=== PATIENT | male | born 1955 | race Caucasian/White ===

== ENCOUNTER 2017-08-22 10:56 | Inpatient (IN) | payer MEDICARE, OTHER ==
[~2017-08-22] VITALS: Ht 195.6 cm; Wt 125.7 kg
[2017-08-22] MEDS ORDERED: SODIUM CHLORIDE 0.9% 1,000 ML IV ONE (11:14)
[2017-08-22] MEDS ORDERED: LORazepam 2 MG/ML, 1ML IVPush ONE (11:30)
[2017-08-22 11:36] LABS: BASOPHILS # (AUTO) 0.04 x10^3/uL (0-0.1); BASOPHILS % (AUTO) 1 % (0-1); EOSINOPHILS # (AUTO) 0.09 x10^3/uL (0-0.4); EOSINOPHILS % (AUTO) 2 % (1-7); LYMPHOCYTES # (AUTO) 1.28 x10^3/uL (1-3.4); LYMPHOCYTES % (AUTO) 21 % (22-44); MD NO; MEAN CORPUSCULAR HGB CONC 34.1 g/dL (33.2-36.2); MEAN CORPUSCULAR VOLUME 99.5 fL (81-97); MEAN PLATELET VOLUME 7.9 fL (7.4-10.4); MONOCYTES # (AUTO) 0.57 x10^3/uL (0.2-0.8); MONOCYTES % (AUTO) 9 % (2-9); NEUTROPHILS # (AUTO) 4.12 x10^3/uL (1.8-6.8); NEUTROPHILS % (AUTO) 67 % (42-75); PLATELET COUNT 334 x10^3/uL (130-400); RED CELL DISTRIBUTION WIDTH 14.7 % (9.4-14.8)
[2017-08-22 11:46] LABS: ANION GAP 8 mmol/L (5-15); CHLORIDE 104 mmol/L (98-107)
[2017-08-22] MEDS ORDERED: LORazepam 2 MG/ML, 1ML ONE (11:52)
[2017-08-22 11:58] LABS: ALANINE AMINOTRANSFERASE 29 U/L (12-78); ALKALINE PHOSPHATASE 116 U/L (45-117); SALICYLATE LEVEL 2.2 mg/dL (2.8-20.0); TOTAL PROTEIN 7.9 g/dL (6.4-8.2)
[2017-08-22 11:59] LABS: AMPHETAMINE SCREEN, URINE Negative (Negative); BARBITURATE SCREEN, URINE Negative (Negative); BENZODIAZEPINE SCREEN, URINE Positive (Negative); CANNABINOID SCREEN, URINE Negative (Negative); COCAINE SCREEN, URINE Negative (Negative); METHADONE SCREEN, URINE Negative (Negative); OPIATE SCREEN, URINE Negative (Negative)
[2017-08-22 12:17] LABS: ACETAMINOPHEN < 2 mcg/mL (10-30)
[2017-08-22] MEDS ORDERED: POLYETHYLENE GLYCOL 17 GM PACKET PO PRN (15:00)
[2017-08-22] MEDS ORDERED: ONDANSETRON ODT 4 MG PO PRN (15:00)
[2017-08-22] MEDS ORDERED: ONDANSETRON 2MG/ML, 2ML IVPush PRN (15:00)
[2017-08-22] MEDS ORDERED: LORazepam 0.5MG TABLET PO PRN (15:00)
[2017-08-22] MEDS ORDERED: LABETALOL 5MG/ML, 20ML IVPush PRN (15:00)
[2017-08-22] MEDS ORDERED: LORazepam 2 MG/ML, 1ML IV PRN ×5 (15:00)
[2017-08-22] MEDS ORDERED: morphine SULFATE 10 MG/ML, 1ML IVPush PRN (15:00)
[2017-08-22] MEDS ORDERED: GUAIFENESIN/DM 200-20MG, 10ML UDC PO PRN (15:00)
[2017-08-22] MEDS ORDERED: LORazepam 1MG TABLET PO PRN ×4 (15:00)
[2017-08-22 15:18] LABS: FREE T4 (FREE THYROXINE) 0.93 ng/dL (0.76-1.46); THYROID STIMULATING HORMONE 1.59 mIU/L (0.358-3.740)
[2017-08-22 15:20] LABS: D-DIMER 1.28 ug/mlFEU (0.00-0.52); INTERNATIONAL NORMALIZED RATIO 1.04 (0.93-1.1); PROTHROMBIN TIME 10.8 Seconds (9.6-11.5)
[2017-08-22] MEDS ORDERED: POTASSIUM CHLORIDE 20 MEQ, MAGNESIUM SULFATE 1 GM, FOLIC ACID 1 MG, THIAMINE 200 MG, MV... IV SCH (16:30)
[2017-08-22 17:27] LABS: MICROSCOPIC NOT IND
[2017-08-22 17:32] VITALS: BP 129/80
[2017-08-22] MEDS: [UNRECOGNIZED DRUG - OTHER] IV SCH (18:02)
[2017-08-22] MEDS: FOLIC ACID IV SCH (18:02)
[2017-08-22] MEDS: MAGNESIUM SULFATE IV SCH (18:02)
[2017-08-22] MEDS: ENOXAPARIN 40 MG/0.4 ML SQ SCH (18:02)
[2017-08-22] MEDS: POTASSIUM CHLORIDE IV SCH (18:02)
[2017-08-22] MEDS: WATER IV SCH (18:02)
[2017-08-22] MEDS ORDERED: OMNIPAQUE 350 MG/ML, 100ML BOTTLE ONE (18:54)
[2017-08-22 19:52] VITALS: BP 127/77
[2017-08-23 03:50] VITALS: BP 150/87
[2017-08-23 05:41] LABS: BASOPHILS # (AUTO) 0.04 x10^3/uL (0-0.1); BASOPHILS % (AUTO) 1 % (0-1); EOSINOPHILS # (AUTO) 0.19 x10^3/uL (0-0.4); EOSINOPHILS % (AUTO) 4 % (1-7); LYMPHOCYTES # (AUTO) 1.28 x10^3/uL (1-3.4); LYMPHOCYTES % (AUTO) 23 % (22-44); MD NO; MEAN CORPUSCULAR HEMOGLOBIN 33.9 pg (27.5-34.5); MEAN CORPUSCULAR VOLUME 99.6 fL (81-97); MEAN PLATELET VOLUME 8.2 fL (7.4-10.4); MONOCYTES % (AUTO) 9 % (2-9); NEUTROPHILS # (AUTO) 3.46 x10^3/uL (1.8-6.8); NEUTROPHILS % (AUTO) 63 % (42-75); PLATELET COUNT 270 x10^3/uL (130-400); RED CELL DISTRIBUTION WIDTH 14.8 % (9.4-14.8)
[2017-08-23 05:52] LABS: ALBUMIN 3.2 g/dL (3.4-5.0); ANION GAP 6 mmol/L (5-15); CALCIUM 8.4 mg/dL (8.5-10.1); CHLORIDE 105 mmol/L (98-107)
[2017-08-23 05:56] LABS: ALANINE AMINOTRANSFERASE 24 U/L (12-78); ALKALINE PHOSPHATASE 91 U/L (45-117); CREATININE 0.81 mg/dL (0.7-1.3); TOTAL PROTEIN 6.5 g/dL (6.4-8.2)
[2017-08-23 07:17] VITALS: BP 141/79
[2017-08-23] MEDS: SENNA/DOCUSATE TABLET PO SCH (07:27)
[2017-08-23 12:55] VITALS: BP 161/93
[2017-08-23] MEDS: MAGNESIUM SULFATE IV SCH (18:22)
[2017-08-23] MEDS: POTASSIUM CHLORIDE IV SCH (18:22)
[2017-08-23] MEDS: WATER IV SCH (18:22)
[2017-08-23] MEDS: [UNRECOGNIZED DRUG - OTHER] IV SCH (18:22)
[2017-08-23] MEDS: FOLIC ACID IV SCH (18:22)
[2017-08-23] MEDS: ENOXAPARIN 40 MG/0.4 ML SQ SCH (18:23)
[2017-08-23 19:05] VITALS: BP 132/81
[2017-08-24 02:28] VITALS: BP 156/75
[2017-08-24 05:30] LABS: BASOPHILS # (AUTO) 0.05 x10^3/uL (0-0.1); BASOPHILS % (AUTO) 1 % (0-1); EOSINOPHILS # (AUTO) 0.22 x10^3/uL (0-0.4); EOSINOPHILS % (AUTO) 4 % (1-7); LYMPHOCYTES # (AUTO) 1.71 x10^3/uL (1-3.4); LYMPHOCYTES % (AUTO) 27 % (22-44); MD NO; MEAN CORPUSCULAR HEMOGLOBIN 33.7 pg (27.5-34.5); MEAN CORPUSCULAR HGB CONC 33.7 g/dL (33.2-36.2); MEAN CORPUSCULAR VOLUME 99.9 fL (81-97); MEAN PLATELET VOLUME 8.3 fL (7.4-10.4); MONOCYTES # (AUTO) 0.58 x10^3/uL (0.2-0.8); MONOCYTES % (AUTO) 9 % (2-9); NEUTROPHILS # (AUTO) 3.77 x10^3/uL (1.8-6.8); NEUTROPHILS % (AUTO) 60 % (42-75); PLATELET COUNT 265 x10^3/uL (130-400); RED BLOOD COUNT 4.21 x10^6/uL (4.38-5.82); RED CELL DISTRIBUTION WIDTH 14.5 % (9.4-14.8)
[2017-08-24 05:40] LABS: ALANINE AMINOTRANSFERASE 21 U/L (12-78); ALBUMIN 3.3 g/dL (3.4-5.0); ANION GAP 9 mmol/L (5-15); CALCIUM 8.5 mg/dL (8.5-10.1); CHLORIDE 105 mmol/L (98-107); CREATININE 0.77 mg/dL (0.7-1.3)
[2017-08-24 05:43] LABS: ALKALINE PHOSPHATASE 88 U/L (45-117); BILIRUBIN,TOTAL 1.2 mg/dL (0.2-1.0); TOTAL PROTEIN 6.6 g/dL (6.4-8.2)
[2017-08-24 06:32] VITALS: BP 168/96
[2017-08-24] MEDS: SENNA/DOCUSATE TABLET PO SCH (10:48)
[2017-08-24 14:58] VITALS: BP 151/93
[2017-08-24] MEDS: ENOXAPARIN 40 MG/0.4 ML SQ SCH (18:45)
[2017-08-24 20:00] VITALS: BP 125/83
[2017-08-25 01:31] VITALS: BP 138/85
[2017-08-25 05:16] LABS: CHLORIDE 106 mmol/L (98-107)
[2017-08-25 05:17] LABS: BASOPHILS # (AUTO) 0.05 x10^3/uL (0-0.1); BASOPHILS % (AUTO) 1 % (0-1); EOSINOPHILS # (AUTO) 0.26 x10^3/uL (0-0.4); EOSINOPHILS % (AUTO) 4 % (1-7); LYMPHOCYTES % (AUTO) 27 % (22-44); MD NO; MEAN CORPUSCULAR HEMOGLOBIN 34.3 pg (27.5-34.5); MEAN CORPUSCULAR HGB CONC 33.9 g/dL (33.2-36.2); MEAN CORPUSCULAR VOLUME 101.2 fL (81-97); MEAN PLATELET VOLUME 8.1 fL (7.4-10.4); MONOCYTES # (AUTO) 0.59 x10^3/uL (0.2-0.8); MONOCYTES % (AUTO) 9 % (2-9); NEUTROPHILS # (AUTO) 3.95 x10^3/uL (1.8-6.8); NEUTROPHILS % (AUTO) 59 % (42-75); PLATELET COUNT 281 x10^3/uL (130-400); RED CELL DISTRIBUTION WIDTH 14.4 % (9.4-14.8)
[2017-08-25 05:21] LABS: ALBUMIN 3.3 g/dL (3.4-5.0); ANION GAP 7 mmol/L (5-15); CALCIUM 8.8 mg/dL (8.5-10.1)
[2017-08-25 07:30] VITALS: BP 156/98
[2017-08-25] MEDS: SENNA/DOCUSATE TABLET PO SCH (08:06)
[2017-08-25] MEDS ORDERED: THIAMINE 100MG TABLET PO SCH (12:30)
[2017-08-25] MEDS ORDERED: FOLIC ACID 1 MG TABLET PO SCH (12:30)
[2017-08-25 13:10] VITALS: BP 130/84
[2017-08-25] MEDS: ENOXAPARIN 40 MG/0.4 ML SQ SCH (18:00)
[2017-08-25] MEDS ORDERED: THIA100T6 PO (18:13)
[2017-08-25] MEDS ORDERED: FOLI-17 PO (18:13)
== END 2017-08-25 18:47 | DRG 897 ==
LOC: ED 13:35 → EDIP 13:36 → ED 14:27 → OBSVTOIN 14:41 → 4EST 15:51
PROVIDERS: ADMIT Hospitalist; ATTEND Hospitalist
DX: F10.239 Alcohol dependence with withdrawal, unspecified (principal); F32.2 Major depressive disorder, single episode, severe without psychotic features; L03.90 Cellulitis, unspecified; R45.851 Suicidal ideations; F17.210 Nicotine dependence, cigarettes, uncomplicated; F20.9 Schizophrenia, unspecified; F41.9 Anxiety disorder, unspecified; I10 Essential (primary) hypertension; I45.10 Unspecified right bundle-branch block; R79.1 Abnormal coagulation profile; Y08.89XA Assault by other specified means, initial encounter; Y93.39 Activity, other involving climbing, rappelling and jumping off; Y92.89 Other specified places as the place of occurrence of the external cause; Y99.8 Other external cause status
CPT/HCPCS: 36415; 71275; 80048; 80053; 80307; 80329; 81003; 82040; 83735; 84100; 84439; 84443; 85025; 85379; 85610; 93005; 93306; 96374; J1650; J3411; J3480; Q9967; G0378; G0480; J2060; J7030; J7121

== ENCOUNTER 2017-09-05 11:52 | Emergency (ER) | payer MEDICARE ==
[~2017-09-05] VITALS: Ht 188 cm; Wt 120.0 kg
[~2017-09-05 11:52] MED LIST: FOLI-17 PO; THIA100T6 PO
[2017-09-05] MEDS ORDERED: HYDR50CA PO (12:08)
[2017-09-05] MEDS ORDERED: TRAZ50TA18 PO (12:08)
[2017-09-05] MEDS ORDERED: BP med PO (12:08)
[2017-09-05] MEDS ORDERED: RISP1TAB45 PO (12:08)
[2017-09-05] MEDS ORDERED: LORazepam 1MG TABLET PO ONE (12:30)
[2017-09-05 12:38] LABS: BASOPHILS # (AUTO) 0.01 x10^3/uL (0-0.1); BASOPHILS % (AUTO) 0 % (0-1); EOSINOPHILS # (AUTO) 0.19 x10^3/uL (0-0.4); EOSINOPHILS % (AUTO) 3 % (1-7); LYMPHOCYTES % (AUTO) 20 % (22-44); MD NO; MEAN CORPUSCULAR HEMOGLOBIN 34.4 pg (27.5-34.5); MEAN CORPUSCULAR HGB CONC 34.8 g/dL (33.2-36.2); MEAN CORPUSCULAR VOLUME 98.8 fL (81-97); MEAN PLATELET VOLUME 8.1 fL (7.4-10.4); MONOCYTES # (AUTO) 0.51 x10^3/uL (0.2-0.8); MONOCYTES % (AUTO) 8 % (2-9); NEUTROPHILS # (AUTO) 4.67 x10^3/uL (1.8-6.8); NEUTROPHILS % (AUTO) 70 % (42-75); PLATELET COUNT 397 x10^3/uL (130-400); RED BLOOD COUNT 4.46 x10^6/uL (4.38-5.82); RED CELL DISTRIBUTION WIDTH 13.8 % (9.4-14.8)
[2017-09-05] MEDS ORDERED: LORazepam 1MG TABLET ONE (12:45)
[2017-09-05 12:51] LABS: ALANINE AMINOTRANSFERASE 27 U/L (12-78); ANION GAP 9 mmol/L (5-15); CALCIUM 8.7 mg/dL (8.5-10.1); CHLORIDE 104 mmol/L (98-107); CREATININE 0.88 mg/dL (0.7-1.3)
[2017-09-05 12:55] LABS: ALKALINE PHOSPHATASE 116 U/L (45-117); BILIRUBIN,TOTAL 0.4 mg/dL (0.2-1.0); SALICYLATE LEVEL 3.1 mg/dL (2.8-20.0); TOTAL PROTEIN 7.7 g/dL (6.4-8.2)
[2017-09-05 13:04] LABS: ACETAMINOPHEN < 2 mcg/mL (10-30)
[2017-09-05 13:16] LABS: AMPHETAMINE SCREEN, URINE Negative (Negative); BARBITURATE SCREEN, URINE Negative (Negative); BENZODIAZEPINE SCREEN, URINE Negative (Negative); CANNABINOID SCREEN, URINE Negative (Negative); COCAINE SCREEN, URINE Negative (Negative); METHADONE SCREEN, URINE Negative (Negative); OPIATE SCREEN, URINE Negative (Negative)
[2017-09-05 15:40] VITALS: BP 152/89
== END 2017-09-05 18:28 | disposition home or self-care (01) ==
LOC: ED 14:14
DX: R45.851 Suicidal ideations (principal); I10 Essential (primary) hypertension; F17.200 Nicotine dependence, unspecified, uncomplicated; Z79.899 Other long term (current) drug therapy
CPT/HCPCS: 36415; 80053; 80307; 80329; 85025; 99284; G0480